=== PATIENT | female | born 1995 | race Caucasian/White ===

== ENCOUNTER 2017-04-21 20:21 | Emergency (ER) | payer OTHER ==
[~2017-04-21] VITALS: Ht 152.4 cm; Wt 72.7 kg
--- OUTSIDE RECORDS SUMMARY | 2017-04-21 20:26 | XMS REPORT | Continuity Of Care Document ---
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 Name Role Phone UNASSIGNED, PHYSICIAN Unavailable Unavailable Michael CARNES DO AT Results Results No Result Data Allergies and Adverse Reactions Allergies and Adverse Reactions Patient Unit Number: [id number] Agent Type Reaction Severity Status Date NEOMYCIN SULFATE Drug Allergy Unknown Unknown Active Unknown Date BACITRACIN ZINC Drug Allergy Unknown Unknown Active Unknown Date POLYMYXIN B SULFATE Drug Allergy Unknown Unknown Active Unknown Date BACITRACIN Drug Allergy Unknown Unknown Active Unknown Date GRAMICIDIN D Drug Allergy Unknown Unknown Active Unknown Date ADHESIVE Drug Allergy Unknown Moderate Active Unknown Date POLYMYXIN B Drug Allergy Unknown Unknown Active Unknown Date LATEX Drug Allergy Unknown Unknown Active Unknown Date Problem List Problem List Visit/Account #[id number] (June 07, 2014 4:35pm - June 07, 2014 5:30pm) Acute Problems: Code/Condition Comments Documented Start Date Documented Resolved Date Code (s) ICD10: Z33.1 ICD9: V22.2 SNOMED: 64216900 ICD10: Z33.1 ICD9: V22.2 SNOMED: 80271058 Plan of Care Plan Of Care Visit/Account #[id number] (June 07, 2014 4:35pm - June 07, 2014 5:30pm) Instructions/Comments: GENERAL INSTRUCTIONS IMPORTANT: We examined and treated you today on an emergency basis only. This was not a substitute for, or an effort to provide, complete medical care. In most cases, you must let your doctor check you again. Tell your doctor about any new or lasting problems. We cannot recognize and treat all injuries or illnesses in one Emergency Department visit. All xrays are overread by radiology, and you will be notified if there are any new findings. Also, you will be notified of any abnormal lab results that are incomplete at this time. If you have a primary doctor, their office will be notified via fax of your visit. You will need to call your primary doctor's office as soon as possible to schedule your recommended follow-up visit. After you leave, you should follow the instructions included. Call the [facility] Emergency Department if you have any problems or concerns You can reach [facility] ED at , [facility], [place] [address]. Follow up with Dr. Villalobos, return to the ED for any concerns. Vital Signs Vital Signs Visit/Account #[id number] (June 07, 2014 4:35pm - June 07, 2014 5:30pm) Label First Result Last Result 3141-9: Weight Measured 155 lbs June 07, 2014 4:34pm 70.487488 kg June 07, 2014 4:34pm 8310-5: Body Temperature 98 degF June 07, 2014 4:34pm 8310-5: Fahrenheit Body Temperature 97.9 [degF] June 07, 2014 5:25pm 8480-6: BP Systolic 105/ mmHg June 07, 2014 4:34pm 68/ mm[Hg] June 07, 2014 5:25pm 8867-4: Heart Rate 75 /min June 07, 2014 4:34pm 95 /min June 07, 2014 5:25pm 9279-1: Respiratory Rate 18 /min June 07, 2014 4:34pm 16 /min June 07, 2014 5:25pm Unmapped Query Mnemonic (RESP.SAT) Saturation 98 % June 07, 2014 4:34pm 98 % June 07, 2014 4:34pm Unmapped Query Mnemonic (VS.BMI) Body Mass Index (BMI) June 07, 2014 4:34pm 31 June 07, 2014 4:34pm Functional Status Functional Status No Functional Status Data Medications Home Medications Visit/Account #[id number] (June 07, 2014 4:35pm - June 07, 2014 5:30pm) Medication Route Sig/Schedule Precondition/Indication Comments/ Instructions Codes Complete Caplet(PNV CMB#20/IRON BISGLY/FA/DHA) 1 TAB TABLET ORAL DAILY: DAILY Complete Caplet (PNV CMB#20/IRON BISGLY/FA/DHA) [facility]: [id number] History Of Encounters Encounters Visit/Account #[id number] (June 07, 2014 4:35pm - June 07, 2014 5:30pm) Account Status Physican Of Record Reason For Visit Visit Diagnosis Start Date/Time Stop Date/Time ER MO CARNES, DO LOWER LEG CRAMPS, R LEG RED 729.82: CRAMP IN LIMB ICD9 Jun 07, 2014 4:35pm Jun 07, 2014 5:30pm History of Procedures Procedure List No Procedures Discharge Instructions Discharge Instructions Visit/Account #[id number] (June 07, 2014 4:35pm - June 07, 2014 5:30pm) No Discharge Instructions Reports. Social History Social History Visit/Account #[id number] (June 07, 2014 4:35pm - June 07, 2014 5:30pm) Smoking Status Never smoker June 07, 2014 4:56pm Immunizations Immunizations Patient Unit Number: [id number] Immunizations No Immunizations Administered
[2017-04-21] MEDS ORDERED: ONDANSETRON 2 MG/ML (Z0FRAN) 2 ML VIAL IV ONE (20:55)
[2017-04-21] MEDS ORDERED: SODIUM CHLORIDE FLUSH 10 ML SYR IV PRN (20:55)
[2017-04-21] MEDS ORDERED: SODIUM CHLORIDE FLUSH 3 ML SYR IV PRN (20:55)
[2017-04-21 22:00] LABS: BILIRUBIN,URINE Negative (Negative); CLARITY,URINE Clear; COLOR,URINE Yellow; GLUCOSE, URINE (UA) Negative (Negative); LEUKOCYTE ESTERASE ,URINE Negative (Negative); UROBILINOGEN,URINE 0.2 mg/dL (0.2-1.0)
[2017-04-21] MEDS ORDERED: ED- ONDANSETRON ODT 4 MG (ZOFRAN) 4 TABLETS/BTL PO ONE (22:30)
[2017-04-21 23:22] VITALS: BP 90/52
== END 2017-04-21 22:40 | disposition home or self-care (01) ==
LOC: ED 20:21
DX: O26.891 Other specified pregnancy related conditions, first trimester (principal); R10.13 Epigastric pain
CPT/HCPCS: 36415; 81003; 83690; 84703; 96361; 96374; 99283; J2405; J7030; 99282

== ENCOUNTER → 2017-04-21 | Outpatient (CLI) | payer OTHER ==
[2017-04-22 08:05] VITALS: BP 112/71
--- NOTE | 2017-04-22 08:05 | Urgent Care T Sheet Gen (E) ---
Intake General Temperature (Fahrenheit): 98.5 Pulse: 83 Blood Pressure Systolic: 112 Blood Pressure Diastolic: 71 Respirations: 19 SPO2: 99 Chief Complaint: stomach issues, diarrhea, stomach pain all the time Source: Patient Exam Limitations: No limitations History of Present Illness Initial Comments Pt reports she has been having stomach pain, particularly after eating, and diarrhea for about two weeks. She has not felt stressed lately and denies any acute illness beginning this. She developed symptoms gradually. The pain is characterized as cramping, with nausea, but she has not vomited. She denies any heartburn or reflux. The diarrhea is multiple times daily, urgent, and seems to be rather greasy in nature. She is also having difficulty with extreme dizziness and nausea in the car, even while she is driving; this started first, before the stomach pain and diarrhea. She does have seasonal allergies, for which she uses Zyrtec, but hasn't had any change in rhinorrhea lately. No sore throat or sinus congestion. Pt has no appendix but has her gallbladder. Her father had his gallbladder removed several years ago, but pt is otherwise unfamiliar with his history or other family history. Onset & Duration: Unsure, Weeks Timing: Still present Severity: Moderate Similar Sympotms Previously: No Allergies: Coded Allergies: No Known Drug Allergies (Unverified , 04/21/17) Home Meds No Active Prescriptions or Reported Meds Additional Comment Pt has tried only peptobismol for this but says it didn't help, only feeling "heavy" in her stomach. Respiratory Constitutional Symptoms: See HPINo Chills, No Fever, Malaise EENTM: See HPINo Eye tearing, No Ear pain, No Ear discharge, Nose CongestionNo Throat pain Respiratory: No symptoms reported Cardiovascular: No symptoms reported Gastrointestinal/Abdominal: See HPI Abdominal pain DiarrheaNo Black stools, NauseaNo Vomiting Genitourinary: No symptoms reported Musculoskeletal: Back pain (occasionally) Skin: No symptoms reported Neurological: No symptoms reported Immunologic/Allergies: Pollen allergy All Other Systems Reviewed Remaining Systems: All other systems reviewed with negative findings Past Fhjhk[facility]-Ufa[facility]-Awkjp[facility] Hx Surgeries/Hospitalizations Hospitalization/Surgery Hx: S/P appendectomy Physical Exam Physical Exam General Appearance: WD/WN Mild distress Eyes, Ears, Nose, Throat Ex: PERRL/EOMI Pharyngeal erythema (clear drainage present)No Tonsillar exudate, Other (TMs bulging bilaterally with clear fluid present; nasal turbinates mildly swollen with clear mucus present ; no sinus tenderness to palpation in maxillary and frontal sinuses) Neck Exam: Non tender Full range of motion Supple Normal inspection Normal thyroid Lymphadenopathy (anterior cervical adenopathy bilateral, mild, fluctuant , nontender) Respiratory Exam: Chest non-tender Lungs clear Normal breath sounds No respiratory distress Cardiovascular Exam: Regular rate, rhythm No murmur GI/ Exam: No organomegaly No distention Abnormal bowel sound (diminished) Tenderness (primarily in the epigastric and RUQ, particularly with palpation of the liver; lesser tenderness felt on deep palpation of the lower quadrants) Guarding (voluntary)No Rebound, No Hepatomegaly, No Splenomegaly, No Mass Back Exam: Normal Inspection No vertebral tenderness CVA tenderness (R) CVA tenderness (L) Skin Exam: Normal color Warm/dry/intact No rashes Neurologic/Psychiatric Exam: Oriented times 4 Mood/affect nml Lymphatic Exam: Other (see neck exam) Departure Urgent Care Impression Chief Complaint: stomach issues, diarrhea, stomach pain all the time Impression: Primary Impression: Abdominal pain Qualified Code: R10.11 - Right upper quadrant pain Additional Impressions: Nausea Diarrhea Qualified Code: R19.7 - Diarrhea, unspecified Departure Disposition: 01 HOME OR SELF-CARE Condition: Stable Additional Instructions: Pt sent to lab at hospital for CBC and CMP, to assess for gallbladder, liver, and basic signs of infection. We will call with the results, or pt may follow up for reassessment and further plan in a couple days. Pt instructed to try Flonase for dizziness, to allow her Eustachian tubes to drain better, and use trial of Prilosec to assess whether this is gastritis- type pain until her lab results are back. I also recommend use of probiotics, to help her gut renew the normal david, particularly since she finished a bout of antibiotics last month. It may be that part of the problem is that imbalance lingering in her GI tract. Pt states understanding and agrees to plan. All questions answered. Update: pt had abdominal pain while in the lab and was referred to ER and assessed there. Scripts No Active Prescriptions or Reported Meds End of report . ASHLEY DICKINSON April 21, 2017 20:56
== END ==
LOC: MHUC 19:14
PROVIDERS: ATTEND Physician Assistant Medical
DX: R10.11 Right upper quadrant pain (principal); R19.7 Diarrhea, unspecified; R11.0 Nausea
CPT/HCPCS: 99214

== ENCOUNTER → 2017-04-21 | Outpatient (CLI) | payer OTHER ==
[2017-04-21 20:37] LABS: BASOPHILS % (AUTO) 0 % (0-2); EOSINOPHILS # (AUTO) 0.2 10^3uL; EOSINOPHILS % (AUTO) 2 % (0-4); LYMPHOCYTES # (AUTO) 4.4 X10^3; MEAN CORPUSCULAR HEMOGLOBIN 30.6 PG (26.0-34.0); MEAN CORPUSCULAR HGB CONC 34.3 g/dL (31.0-37.0); MEAN CORPUSCULAR VOLUME 89 FL (80-100); MEAN PLATELET VOLUME 10.9 FL (6.0-9.5); MONOCYTES # (AUTO) 0.9 X10^3; MONOCYTES % (AUTO) 8 % (3-11); NEUTROPHILS % (AUTO) 52 % (51-67); PLATELET COUNT 251 10^3uL (150-450); WHITE BLOOD COUNT 11.59 10^3uL (4.0-11.0)
[2017-04-21 20:44] LABS: ALBUMIN 4.2 g/dL (3.4-5.0); ANION GAP 12.6 MEQ/L (3-15); TOTAL PROTEIN 7.6 g/dL (6.4-8.5)
== END ==
LOC: LAB 20:01
PROVIDERS: ATTEND Physician Assistant Medical
DX: R10.9 Unspecified abdominal pain (principal)
CPT/HCPCS: 36415; 80053; 85025